=== PATIENT | female | born 1935 | race Caucasian/White ===

== ENCOUNTER 2017-10-28 18:31 | Emergency (ER) | payer MEDICARE ==
[~2017-10-28] VITALS: Ht 154.9 cm; Wt 63.0 kg
[~2017-10-28 18:31] MED LIST: (None)20 M1 PO; ALBU3IS INH; ALBU90OI; ALBU90OI INH; ALBU90OI61 INH; ALBUIS INH; ALLO100 PO; ALLO300; ALLO300 PO; ALPR.25 PO; ASPI81CH; ASPI81CH PO; ASPI81EC PO; ATEN100 PO; ATEN50; ATEN50 PO; AZIT250 PO; Alprazolam0.25 MG PO; Atenolol50 MG PO; BIOTIN5000 MCG PO; BUDE200IP; BUDE200IP IH; CALCAVITD PO; CYAN100 PO; CYCL10 PO; D3-5050000 UNIT PO; DILT300; DILT300 PO; DILTIAZEM 24HR300 MG PO; DIPH50 PO; DOCU100 PO; DOXY100T53; ERGO50000 PO; FENT25TP TOP; FISH1000 PO; GLUC500 PO; GLYCOLAX; GUAI600T33; GUAI600T33 PO; HYDACE25S PR; HYDCHL12.5 PO; HYDMOR2 PO; HYDR10 PO; ISOD40ER PO; Keflex500 MG PO; Kristalose20 GM PO; LANS15EC PO; LANS30EC; LANS30EC PO; LAVAP17G PO; LEVA.63IS; LEVA.63IS IH; LEVA1.25 IH; LEVFLO500 PO; LOSHYD PO; MAGGLU250 PO; MAGNESIUM250 MG PO; MELO7.5 PO; META800 PO; METO50ER PO; MONT10T PO; MULVITB PO; MULVITB&C PO; MUSINEX; NIAC250ER; NIAC500 PO; NIACINAMIDE PO; NITR.4SL; NITR.4SL SL; Nephro-Vite RX1 EA PO; OMEP20ER PO; PENNAL50; PENNAL50 PO; POLY17UD PO; POLYETHYLENE G255 GM PO; PRAHYD1AE TOP; PRED10 PO; PRED20; PRED20 PO; PRED5 PO; PROM25 PO; Prednisone20 MG PO; Prevacid Soluta30 MG PO; RANI150 PO; SINGULAIR; SPIR50; SPIR50 PO; Symbicort 16010.2 GM IH; THEO100ERB; THEO200ERA PO; THEO200ERB; THEO200ERC PO; THEO300ERA PO; TRAZ100; TRAZ50 PO; TRIHYD253A PO; TURMERIC500 M1 PO; Ultram50 MG PO; VP-VITE RX TAB1 EACH PO; Zithromax250 MG PO; [UNRECOGNIZED DRUG - CODE] IH; [UNRECOGNIZED DRUG - OTHER] PO
[2017-10-28 19:51] LABS: BASOPHILS ABSOLUTE AUTO 0.03 K/mm3 (0.00-0.23); BASOPHILS PERCENT AUTO 0 % (0-2); EOSINOPHILS ABSOLUTE AUTO 0.05 K/mm3 (0.00-0.68); EOSINOPHILS PERCENT AUTO 0 % (0-6); Hematocrit 39.6 % (33.0-51.0); Hemoglobin 13.9 g/dL (11.5-16.0); IMMATURE GRAN ABSOLUTE AUTO 0.04 K/mm3 (0.00-0.10); IMMATURE GRAN PERCENT AUTO 0 % (0-1); LYMPHOCYTES ABSOLUTE AUTO 1.79 K/mm3 (0.84-5.20); LYMPHOCYTES PERCENT AUTO 15 % (21-46); MONOCYTES ABSOLUTE AUTO 0.92 K/mm3 (0.16-1.47); MONOCYTES PERCENT AUTO 8 % (4-13); Mean Corpuscular HGB 31.2 pg (26.0-34.0); Mean Corpuscular HGB Conc 35.1 g/dL (31.5-36.5); Mean Corpuscular Volume 89 fL (80-100); Mean Platelet Volume 8.7 fL (9.1-12.4); NEUTROPHILS ABSOLUTE AUTO 8.91 K/mm3 (1.96-9.15); NEUTROPHILS PERCENT AUTO 76 % (41-73); Platelet Count 305 K/mm3 (150-400); RDW Coefficient Variation 13.4 % (11.7-14.2); RDW Standard Deviation 44.1 fL (35.1-46.3); Red Blood Cell Count 4.46 M/mm3 (3.80-5.20); White Blood Cell Count 11.74 K/mm3 (4.00-11.30)
[2017-10-28 20:15] LABS: Alanine Aminotransfer (ALT/SGP 19 U/L (12-78); Albumin, Blood 3.7 g/dL (3.4-5.0); Albumin/Globulin Ratio 1.2 (0.8-1.8); Alk Phos 67 U/L (50-136); Anion Gap 10 mmol/L (6-16); Aspartate Aminotrans (AST/SGOT 24 U/L (12-37); Bilirubin, Total 0.3 mg/dL (0.1-1.0); Blood Urea Nitrogen 15 mg/dL (8-24); Bun/Creatinine Ratio 23.9 (12.0-20.0); CO2, Blood 28 mmol/L (21-32); Calcium, Blood 8.7 mg/dL (8.5-10.1); Chloride, Blood 90 mmol/L (98-108); Creatinine, Blood 0.63 mg/dL (0.40-1.00); Globulin, Blood 3.2 g/dL (2.2-4.0); Glomerular Filtration Rate >60 (60-); Glucose, Blood 113 mg/dL (70-99); Sodium, Blood 128 mmol/L (136-145); Total Protein, Blood 6.9 g/dL (6.4-8.2); Troponin I <0.015 ng/mL (0.000-0.040)
[2017-10-29 00:23] LABS: Influenza A Negative (NEGATIVE); Influenza B Negative (NEGATIVE)
== END 2017-10-29 00:27 | disposition home or self-care (01) ==
LOC: ER 18:31
PROVIDERS: Emergency Medicine
DX: R10.84 Generalized abdominal pain (principal); I10 Essential (primary) hypertension; J45.909 Unspecified asthma, uncomplicated; F41.9 Anxiety disorder, unspecified; Z88.5 Allergy status to narcotic agent; Z88.0 Allergy status to penicillin; Z88.7 Allergy status to serum and vaccine; Z88.8 Allergy status to other drugs, medicaments and biological substances; Z79.51 Long term (current) use of inhaled steroids; Z79.899 Other long term (current) drug therapy
CPT/HCPCS: 36415; 71046; 74018; 80053; 84484; 85025; 87804; 93005; 93010; 99283

== ENCOUNTER 2018-05-24 16:04 | Emergency (ER) | payer MEDICARE ==
[~2018-05-24] VITALS: Ht 162.6 cm; Wt 59.0 kg
[2018-05-24] MEDS ORDERED: MAGCHL64ER PO (16:24)
[2018-05-24] MEDS ORDERED: PROBIOTIC1 EAC3 (16:24)
[2018-05-24] MEDS ORDERED: TURMERIC500 M2 PO (16:24)
[2018-05-24] MEDS ORDERED: BIOTIN1000 MCG PO (16:25)
[2018-05-24] MEDS ORDERED: LANS30EC (16:25)
[2018-05-24] MEDS ORDERED: DILT120ERA PO (16:26)
[2018-05-24] MEDS ORDERED: NEPHRO-VITE RX1 EACH PO (16:26)
[2018-05-24] MEDS ORDERED: METO50ER PO (16:27)
[2018-05-24] MEDS ORDERED: ALPR.25 PO (16:27)
[2018-05-24] MEDS ORDERED: ALLO300 PO (16:27)
[2018-05-24] MEDS ORDERED: HYDCHL12.5 PO (16:27)
[2018-05-24] MEDS ORDERED: HYDR10 PO (16:27)
[2018-05-24] MEDS ORDERED: ALBU3IS (16:28)
[2018-05-24] MEDS ORDERED: ALBU90OI6 (16:28)
[2018-05-24] MEDS ORDERED: ASPI81CH PO (16:28)
[2018-05-24] MEDS ORDERED: NITR.4SL (16:28)
== END 2018-05-24 17:55 | disposition home or self-care (01) ==
LOC: ER 16:04
DX: S61.012A Laceration without foreign body of left thumb without damage to nail, initial encounter (principal); W22.8XXA Striking against or struck by other objects, initial encounter; Z91.041 Radiographic dye allergy status; Z88.5 Allergy status to narcotic agent; Z88.8 Allergy status to other drugs, medicaments and biological substances; Z88.0 Allergy status to penicillin; Z79.899 Other long term (current) drug therapy; Z79.82 Long term (current) use of aspirin; I10 Essential (primary) hypertension; J45.909 Unspecified asthma, uncomplicated; F41.9 Anxiety disorder, unspecified
CPT/HCPCS: 73130; 99283-25

== ENCOUNTER 2019-02-06 11:24 | Emergency (ER) | payer MEDICARE ==
[~2019-02-06] VITALS: Ht 165.1 cm; Wt 74.8 kg
[~2019-02-06 11:24] MED LIST changes: +ALBU3IS; +ALBU90OI6; +BIOTIN1000 MCG PO; +DILT120ERA PO; +MAGCHL64ER PO; +NEPHRO-VITE RX1 EACH PO; +PROBIOTIC1 EAC3; +TURMERIC500 M2 PO
== END 2019-02-06 13:12 | disposition home or self-care (01) ==
LOC: ER 11:24
DX: M79.652 Pain in left thigh (principal); I10 Essential (primary) hypertension; J44.9 Chronic obstructive pulmonary disease, unspecified; Z87.01 Personal history of pneumonia (recurrent); Z79.82 Long term (current) use of aspirin; Z79.899 Other long term (current) drug therapy; Z88.0 Allergy status to penicillin; Z88.5 Allergy status to narcotic agent; Z88.8 Allergy status to other drugs, medicaments and biological substances
CPT/HCPCS: 36415; 93971; 99284-25

== ENCOUNTER 2019-06-03 09:42 | Emergency (ER) | payer MEDICARE ==
[~2019-06-03] VITALS: Ht 152.4 cm; Wt 59.0 kg
[2019-06-03] MEDS ORDERED: MULVITB (10:03)
[2019-06-03] MEDS ORDERED: Prednisone10 MG PO (10:03)
[2019-06-03 10:13] LABS: BASOPHILS PERCENT AUTO 0 % (0-2); EOSINOPHILS PERCENT AUTO 1 % (0-6); Hematocrit 44.3 % (33.0-51.0); Hemoglobin 14.7 g/dL (11.5-16.0); IMMATURE GRAN PERCENT AUTO 0 % (0-1); LYMPHOCYTES ABSOLUTE AUTO 1.69 K/mm3 (0.84-5.20); LYMPHOCYTES PERCENT AUTO 15 % (21-46); MONOCYTES ABSOLUTE AUTO 0.87 K/mm3 (0.16-1.47); MONOCYTES PERCENT AUTO 8 % (4-13); Mean Corpuscular HGB 31.7 pg (26.0-34.0); Mean Corpuscular HGB Conc 33.2 g/dL (31.5-36.5); Mean Corpuscular Volume 96 fL (80-100); Mean Platelet Volume 9.2 fL (9.1-12.4); NEUTROPHILS ABSOLUTE AUTO 8.61 K/mm3 (1.96-9.15); NEUTROPHILS PERCENT AUTO 76 % (41-73); Platelet Count 212 K/mm3 (150-400); RDW Coefficient Variation 13.4 % (11.7-14.2); RDW Standard Deviation 47.1 fL (35.1-46.3); Red Blood Cell Count 4.64 M/mm3 (3.80-5.20); White Blood Cell Count 11.34 K/mm3 (4.00-11.30)
[2019-06-03 10:14] LABS: BASOPHILS ABSOLUTE AUTO 0.05 K/mm3 (0.00-0.23); EOSINOPHILS ABSOLUTE AUTO 0.08 K/mm3 (0.00-0.68); IMMATURE GRAN ABSOLUTE AUTO 0.04 K/mm3 (0.00-0.10)
[2019-06-03 10:28] LABS: Alanine Aminotransfer (ALT/SGP 18 U/L (12-78); Albumin, Blood 3.6 g/dL (3.4-5.0); Albumin/Globulin Ratio 1.1 (0.8-1.8); Alk Phos 67 U/L (50-136); Anion Gap 6 mmol/L (6-16); Aspartate Aminotrans (AST/SGOT 26 U/L (12-37); Bilirubin, Total 0.6 mg/dL (0.1-1.0); Blood Urea Nitrogen 12 mg/dL (8-24); Bun/Creatinine Ratio 15.4 (12.0-20.0); CO2, Blood 24 mmol/L (21-32); Calcium, Blood 8.7 mg/dL (8.5-10.1); Chloride, Blood 107 mmol/L (98-108); Creatinine, Blood 0.78 mg/dL (0.40-1.00); Globulin, Blood 3.4 g/dL (2.2-4.0); Glomerular Filtration Rate >60 (60-); Glucose, Blood 103 mg/dL (70-99); Potassium, Blood 3.9 mmol/L (3.5-5.5); Sodium, Blood 137 mmol/L (136-145); Troponin I <0.015 ng/mL (0.000-0.040)
[2019-06-03] MEDS ORDERED: Prednisone20 MG PO (10:57)
== END 2019-06-03 11:32 | disposition home or self-care (01) ==
LOC: ER 09:42
PROVIDERS: Emergency Medicine
DX: J44.1 Chronic obstructive pulmonary disease with (acute) exacerbation (principal); R07.9 Chest pain, unspecified; I10 Essential (primary) hypertension; J45.909 Unspecified asthma, uncomplicated; F41.9 Anxiety disorder, unspecified; Z88.8 Allergy status to other drugs, medicaments and biological substances; Z88.5 Allergy status to narcotic agent; Z88.0 Allergy status to penicillin; Z91.041 Radiographic dye allergy status; Z88.7 Allergy status to serum and vaccine; Z79.899 Other long term (current) drug therapy; Z79.82 Long term (current) use of aspirin
CPT/HCPCS: 71046; 80053; 84484; 85025; 93005; 93010; 99284-25; J7512

== ENCOUNTER 2019-07-27 10:23 | Emergency (ER) | payer MEDICARE ==
[~2019-07-27] VITALS: Ht 152.4 cm; Wt 59.0 kg
[~2019-07-27 10:23] MED LIST changes: +MULVITB; +Prednisone10 MG PO
[2019-07-27 10:58] LABS: BASOPHILS ABSOLUTE AUTO 0.05 K/mm3 (0.00-0.23); BASOPHILS PERCENT AUTO 1 % (0-2); EOSINOPHILS PERCENT AUTO 2 % (0-6); Hematocrit 45.1 % (33.0-51.0); Hemoglobin 15.2 g/dL (11.5-16.0); IMMATURE GRAN ABSOLUTE AUTO 0.02 K/mm3 (0.00-0.10); IMMATURE GRAN PERCENT AUTO 0 % (0-1); LYMPHOCYTES ABSOLUTE AUTO 3.22 K/mm3 (0.84-5.20); LYMPHOCYTES PERCENT AUTO 31 % (21-46); MONOCYTES ABSOLUTE AUTO 0.63 K/mm3 (0.16-1.47); MONOCYTES PERCENT AUTO 6 % (4-13); Mean Corpuscular HGB 31.7 pg (26.0-34.0); Mean Corpuscular HGB Conc 33.7 g/dL (31.5-36.5); Mean Corpuscular Volume 94 fL (80-100); Mean Platelet Volume 9.2 fL (9.1-12.4); NEUTROPHILS PERCENT AUTO 61 % (41-73); Platelet Count 259 K/mm3 (150-400); RDW Coefficient Variation 13.8 % (11.7-14.2); RDW Standard Deviation 47.5 fL (35.1-46.3); White Blood Cell Count 10.42 K/mm3 (4.00-11.30)
[2019-07-27 11:16] LABS: Alanine Aminotransfer (ALT/SGP 21 U/L (12-78); Albumin, Blood 3.7 g/dL (3.4-5.0); Albumin/Globulin Ratio 1.1 (0.8-1.8); Alk Phos 71 U/L (50-136); Anion Gap 8 mmol/L (6-16); Aspartate Aminotrans (AST/SGOT 30 U/L (12-37); Bilirubin, Total 0.7 mg/dL (0.1-1.0); Blood Urea Nitrogen 16 mg/dL (8-24); Bun/Creatinine Ratio 20.3 (12.0-20.0); CO2, Blood 26 mmol/L (21-32); Calcium, Blood 9.2 mg/dL (8.5-10.1); Chloride, Blood 108 mmol/L (98-108); Creatinine, Blood 0.79 mg/dL (0.40-1.00); Globulin, Blood 3.5 g/dL (2.2-4.0); Glomerular Filtration Rate >60 (60-); Glucose, Blood 122 mg/dL (70-99); Potassium, Blood 3.6 mmol/L (3.5-5.5); Sodium, Blood 142 mmol/L (136-145); Total Protein, Blood 7.2 g/dL (6.4-8.2)
== END 2019-07-27 12:33 | disposition home or self-care (01) ==
LOC: ER 10:23
PROVIDERS: Emergency Medicine
DX: I10 Essential (primary) hypertension (principal); F43.9 Reaction to severe stress, unspecified; J45.909 Unspecified asthma, uncomplicated; F41.0 Panic disorder [episodic paroxysmal anxiety]; Z91.041 Radiographic dye allergy status; Z88.8 Allergy status to other drugs, medicaments and biological substances; Z88.5 Allergy status to narcotic agent; Z88.0 Allergy status to penicillin; Z88.6 Allergy status to analgesic agent; Z88.7 Allergy status to serum and vaccine; Z79.899 Other long term (current) drug therapy; Z79.51 Long term (current) use of inhaled steroids; Z79.82 Long term (current) use of aspirin
CPT/HCPCS: 80053; 85025; 93005; 93010; 96374; 99284-25; J2060

== ENCOUNTER 2019-08-15 22:04 | Emergency (ER) | payer MEDICARE ==
[~2019-08-15] VITALS: Ht 152.4 cm; Wt 61.2 kg
== END 2019-08-16 02:52 | disposition home or self-care (01) ==
LOC: ER 22:04
DX: F41.0 Panic disorder [episodic paroxysmal anxiety] (principal); J45.909 Unspecified asthma, uncomplicated; I10 Essential (primary) hypertension; M54.9 Dorsalgia, unspecified; G89.29 Other chronic pain; Z88.5 Allergy status to narcotic agent; Z88.0 Allergy status to penicillin; Z88.6 Allergy status to analgesic agent; Z88.8 Allergy status to other drugs, medicaments and biological substances; Z79.82 Long term (current) use of aspirin; Z79.899 Other long term (current) drug therapy
CPT/HCPCS: 93005; 93010; 99284-25

== ENCOUNTER → 2019-09-16 | Outpatient (CLI) | payer MEDICARE | END | disposition home or self-care (01) | LOC: LAB SHORT 16:30 → LAB 16:30 | DX: J20.9 Acute bronchitis, unspecified (principal) | CPT/HCPCS: 87070; 87205 ==

== ENCOUNTER 2019-10-15 16:37 | Emergency (ER) | payer MEDICARE ==
[~2019-10-15] VITALS: Ht 152.4 cm; Wt 57.1 kg
[2019-10-15 19:49] LABS: BASOPHILS ABSOLUTE AUTO 0.05 K/mm3 (0.00-0.23); BASOPHILS PERCENT AUTO 1 % (0-2); EOSINOPHILS ABSOLUTE AUTO 0.15 K/mm3 (0.00-0.68); EOSINOPHILS PERCENT AUTO 2 % (0-6); Hematocrit 45.2 % (33.0-51.0); Hemoglobin 14.9 g/dL (11.5-16.0); IMMATURE GRAN ABSOLUTE AUTO 0.02 K/mm3 (0.00-0.10); IMMATURE GRAN PERCENT AUTO 0 % (0-1); LYMPHOCYTES ABSOLUTE AUTO 3.37 K/mm3 (0.84-5.20); LYMPHOCYTES PERCENT AUTO 42 % (21-46); MONOCYTES ABSOLUTE AUTO 0.63 K/mm3 (0.16-1.47); MONOCYTES PERCENT AUTO 8 % (4-13); Mean Corpuscular Volume 94 fL (80-100); Mean Platelet Volume 9.1 fL (9.1-12.4); NEUTROPHILS ABSOLUTE AUTO 3.77 K/mm3 (1.96-9.15); NEUTROPHILS PERCENT AUTO 47 % (41-73); Platelet Count 289 K/mm3 (150-400); RDW Coefficient Variation 13.5 % (11.7-14.2); RDW Standard Deviation 46.7 fL (35.1-46.3); White Blood Cell Count 7.99 K/mm3 (4.00-11.30)
[2019-10-15 20:14] LABS: Alanine Aminotransfer (ALT/SGP 21 U/L (12-78); Albumin/Globulin Ratio 1.2 (0.8-1.8); Alk Phos 68 U/L (50-136); Anion Gap 4 mmol/L (6-16); Aspartate Aminotrans (AST/SGOT 19 U/L (12-37); Bilirubin, Total 0.3 mg/dL (0.1-1.0); Blood Urea Nitrogen 26 mg/dL (8-24); Bun/Creatinine Ratio 31.4 (12.0-20.0); CO2, Blood 27 mmol/L (21-32); Calcium, Blood 9.9 mg/dL (8.5-10.1); Chloride, Blood 107 mmol/L (98-108); Creatinine, Blood 0.83 mg/dL (0.40-1.00); Globulin, Blood 3.3 g/dL (2.2-4.0); Glomerular Filtration Rate >60 (60-); Glucose, Blood 94 mg/dL (70-99); Potassium, Blood 3.9 mmol/L (3.5-5.5); Sodium, Blood 138 mmol/L (136-145); Total Protein, Blood 7.3 g/dL (6.4-8.2)
== END 2019-10-15 21:01 | disposition home or self-care (01) ==
LOC: ER 16:37
PROVIDERS: Physician Assistant
DX: M41.9 Scoliosis, unspecified (principal); I10 Essential (primary) hypertension; E78.5 Hyperlipidemia, unspecified; J44.9 Chronic obstructive pulmonary disease, unspecified; F41.9 Anxiety disorder, unspecified
CPT/HCPCS: 36415; 71046; 80053; 85025; 99284-25

== ENCOUNTER 2019-11-04 19:17 | Emergency (ER) | payer MEDICARE ==
[~2019-11-04] VITALS: Ht 152.4 cm; Wt 56.7 kg
[2019-11-04] MEDS ORDERED: XANAX0.5 MG PO (20:47)
== END 2019-11-04 23:16 | disposition home or self-care (01) ==
LOC: ER 19:17
DX: R44.0 Auditory hallucinations (principal); E78.5 Hyperlipidemia, unspecified; J44.9 Chronic obstructive pulmonary disease, unspecified; I25.10 Atherosclerotic heart disease of native coronary artery without angina pectoris; F41.9 Anxiety disorder, unspecified; M10.9 Gout, unspecified; Z88.0 Allergy status to penicillin; Z88.5 Allergy status to narcotic agent; Z88.8 Allergy status to other drugs, medicaments and biological substances; Z88.7 Allergy status to serum and vaccine; Z79.82 Long term (current) use of aspirin; Z79.51 Long term (current) use of inhaled steroids; Z79.899 Other long term (current) drug therapy
CPT/HCPCS: 99284

== ENCOUNTER 2019-11-10 20:19 | Observation (INO) | payer MEDICARE ==
[~2019-11-10] VITALS: Ht 152.4 cm; Wt 54.4 kg
[~2019-11-10 20:19] MED LIST changes: +XANAX0.5 MG PO
[2019-11-10 22:33] LABS: BASOPHILS ABSOLUTE AUTO 0.06 K/mm3 (0.00-0.23); BASOPHILS PERCENT AUTO 1 % (0-2); EOSINOPHILS PERCENT AUTO 1 % (0-6); Hematocrit 41.2 % (33.0-51.0); Hemoglobin 13.7 g/dL (11.5-16.0); IMMATURE GRAN ABSOLUTE AUTO 0.03 K/mm3 (0.00-0.10); IMMATURE GRAN PERCENT AUTO 0 % (0-1); LYMPHOCYTES ABSOLUTE AUTO 2.79 K/mm3 (0.84-5.20); LYMPHOCYTES PERCENT AUTO 23 % (21-46); MONOCYTES ABSOLUTE AUTO 1.05 K/mm3 (0.16-1.47); MONOCYTES PERCENT AUTO 9 % (4-13); Mean Corpuscular HGB Conc 33.3 g/dL (31.5-36.5); Mean Corpuscular Volume 93 fL (80-100); Mean Platelet Volume 9.1 fL (9.1-12.4); NEUTROPHILS ABSOLUTE AUTO 8.28 K/mm3 (1.96-9.15); NEUTROPHILS PERCENT AUTO 67 % (41-73); Platelet Count 272 K/mm3 (150-400); RDW Coefficient Variation 14.2 % (11.7-14.2); RDW Standard Deviation 48.6 fL (35.1-46.3); Red Blood Cell Count 4.42 M/mm3 (3.80-5.20); White Blood Cell Count 12.31 K/mm3 (4.00-11.30)
[2019-11-10 22:52] LABS: Acetaminophen, Random <2.0 ug/mL (10.0-30.0); Alanine Aminotransfer (ALT/SGP 36 U/L (12-78); Albumin, Blood 3.4 g/dL (3.4-5.0); Albumin/Globulin Ratio 1.1 (0.8-1.8); Alk Phos 62 U/L (50-136); Anion Gap 6 mmol/L (6-16); Aspartate Aminotrans (AST/SGOT 47 U/L (12-37); Bilirubin, Total 0.3 mg/dL (0.1-1.0); Blood Urea Nitrogen 45 mg/dL (8-24); Bun/Creatinine Ratio 46.3 (12.0-20.0); CO2, Blood 28 mmol/L (21-32); Calcium, Blood 8.8 mg/dL (8.5-10.1); Chloride, Blood 108 mmol/L (98-108); Creatinine, Blood 0.97 mg/dL (0.40-1.00); Ethanol (Alcohol), Blood, Med <3 mg/dL; Globulin, Blood 3.2 g/dL (2.2-4.0); Glomerular Filtration Rate 58 (60-); Glucose, Blood 102 mg/dL (70-99); Potassium, Blood 3.8 mmol/L (3.5-5.5); Salicylate <1.7 mg/dL (2.8-20.0); Sodium, Blood 142 mmol/L (136-145); Thyroxine (T4) 10.1 ug/dL (4.8-13.9); Total Protein, Blood 6.6 g/dL (6.4-8.2)
[2019-11-11 01:19] LABS: Source, Urine Clean Catch
[2019-11-11 01:24] LABS: Appearance, Urine Clear (Clear); Bilirubin, Urine Neg (Neg); Blood, Urine Neg (Neg); Color, Urine Yellow (P-Yellow); Glucose Qualitative, Urine Neg (Neg); Ketones, Urine 1+ (Neg); Leukocyte Esterase, Urine Neg (Neg); Nitrite, Urine Neg (Neg); Protein, Urine 1+ (Neg); Urobilinogen, Urine NORM (Normal)
[2019-11-11] MEDS ORDERED: QUETIAPINE FUMA25 MG PO (02:36)
[2019-11-11] MEDS ORDERED: ALLO100 (02:36)
[2019-11-11] MEDS ORDERED: Lamotrigine25 MG PO (02:36)
[2019-11-11] MEDS ORDERED: Rena-Vite Tabl0.8 MG PO (02:37)
[2019-11-11] MEDS ORDERED: METOPROLOL SUCC ER 5 (02:37)
[2019-11-11] MEDS ORDERED: Clonazepam0.25 MG PO (02:37)
[2019-11-11] MEDS ORDERED: NITR.4SL SL (15:15)
[2019-11-11] MEDS ORDERED: CLON.1 PO (15:24)
== END 2019-11-12 16:07 ==
LOC: ER 20:19 → EOR 20:20
PROVIDERS: Physician Assistant; ADMIT Emergency Medicine
DX: F29 Unspecified psychosis not due to a substance or known physiological condition (principal); I10 Essential (primary) hypertension; I25.10 Atherosclerotic heart disease of native coronary artery without angina pectoris; E78.5 Hyperlipidemia, unspecified; J44.9 Chronic obstructive pulmonary disease, unspecified; F41.9 Anxiety disorder, unspecified; M10.9 Gout, unspecified; Z91.041 Radiographic dye allergy status; Z88.8 Allergy status to other drugs, medicaments and biological substances; Z88.5 Allergy status to narcotic agent; Z88.0 Allergy status to penicillin; Z88.6 Allergy status to analgesic agent; Z88.7 Allergy status to serum and vaccine; Z79.899 Other long term (current) drug therapy; Z79.82 Long term (current) use of aspirin
CPT/HCPCS: 36415; 80053; 84436; 85025; 93005; 93010; 99285-25; G0378; G0480; P9612; Q3014